=== PATIENT | female | born 1985 | race Caucasian/White ===

== ENCOUNTER → 2020-09-06 | Outpatient (CLI) | payer OTHER ==
[~2020-09-06] MED LIST: FLAGYL500 MG PO; PHENERGAN 12.12.5 M1 PO; PHENERGAN 12.12.5 MG PR; PHENERGAN 25 MG25 M1 PO; PHENERGAN 25 MG25 MG PR; REGLAN10 MG PO
== END ==
LOC: RT 08:04
DX: K31.84 Gastroparesis (principal); R00.0 Tachycardia, unspecified
CPT/HCPCS: 93005

== ENCOUNTER 2020-10-20 00:13 | Emergency (ER) | payer OTHER ==
[~2020-10-20 00:13] MED LIST changes: -PHENERGAN 12.12.5 MG PR
[2020-10-20 02:43] LABS: HEMOGLOBIN 15.4 gm/dl (12.3-15.3); RED BLOOD COUNT 5.17 M/UL (4.00-5.10); WHITE BLOOD COUNT 14.2 K/UL (4.5-11.0)
[2020-10-20 02:56] LABS: BUN/CREATININE RATIO 10 (0-10)
[2020-10-20] MEDS ORDERED: PHENERGAN 12.12.5 MG PR (04:09)
== END 2020-10-20 04:40 | disposition home or self-care (01) ==
LOC: ER1 00:13
PROVIDERS: Family Medicine
DX: R11.2 Nausea with vomiting, unspecified (principal); E87.6 Hypokalemia; E11.9 Type 2 diabetes mellitus without complications; I10 Essential (primary) hypertension; F17.210 Nicotine dependence, cigarettes, uncomplicated
CPT/HCPCS: 80053; 81001; 84703; 85025; 96374; 99284; J0780; J7030

== ENCOUNTER → 2021-02-25 | Outpatient (CLI) | payer OTHER ==
[~2021-02-25] MED LIST changes: +CEPHALEXIN500 MG PO; +LODINE CAP 300300 MG PO; +PHENERGAN 12.12.5 MG PR
== END ==
LOC: CT 09:15
DX: R31.29 Other microscopic hematuria (principal)
CPT/HCPCS: 36415; 82565; 84520; Q9967

== ENCOUNTER 2021-03-23 05:19 | Emergency (ER) | payer OTHER ==
[~2021-03-23 05:19] MED LIST changes: -CEPHALEXIN500 MG PO; -LODINE CAP 300300 MG PO
[2021-03-23] MEDS ORDERED: LODINE CAP 300300 MG PO (06:00)
[2021-03-23] MEDS ORDERED: CEPHALEXIN500 MG PO (06:00)
== END 2021-03-23 06:10 | disposition home or self-care (01) ==
LOC: ER1 05:19
DX: S61.212A Laceration without foreign body of right middle finger without damage to nail, initial encounter (principal); S91.201A Unspecified open wound of right great toe with damage to nail, initial encounter; E11.9 Type 2 diabetes mellitus without complications; F17.210 Nicotine dependence, cigarettes, uncomplicated; I10 Essential (primary) hypertension; Z88.0 Allergy status to penicillin; Z79.4 Long term (current) use of insulin; W45.8XXA Other foreign body or object entering through skin, initial encounter
CPT/HCPCS: 11750; 12001; 99283

== ENCOUNTER → 2021-05-17 | Outpatient (CLI) | payer OTHER ==
[~2021-05-17] MED LIST changes: +CEPHALEXIN500 MG PO; +LODINE CAP 300300 MG PO
== END ==
LOC: RT 11:17
DX: K31.84 Gastroparesis (principal)
CPT/HCPCS: 93005

== ENCOUNTER 2021-07-21 14:51 | Emergency (ER) | payer OTHER ==
[2021-07-21 15:22] LABS: HEMOGLOBIN 14.9 gm/dl (12.3-15.3); RED BLOOD COUNT 5.02 M/UL (4.00-5.10); WHITE BLOOD COUNT 11.2 K/UL (4.5-11.0)
[2021-07-21 15:52] LABS: BUN/CREATININE RATIO 6 (0-10)
== END 2021-07-21 19:28 | disposition home or self-care (01) ==
LOC: ER1 14:51
PROVIDERS: Physician Assistant
DX: R10.11 Right upper quadrant pain (principal); E11.43 Type 2 diabetes mellitus with diabetic autonomic (poly)neuropathy; K31.84 Gastroparesis; F17.290 Nicotine dependence, other tobacco product, uncomplicated; Z79.84 Long term (current) use of oral hypoglycemic drugs
CPT/HCPCS: 80053; 81001; 84703; 85025; 99284; Q9967

== ENCOUNTER 2021-10-16 23:32 | Emergency (ER) | payer OTHER ==
[2021-10-17] MEDS ORDERED: ZANAFLEX 4 MG TA4 MG PO (02:37)
[2021-10-17] MEDS ORDERED: TORADOL 10 MG T10 MG PO (02:37)
== END 2021-10-17 02:53 | disposition home or self-care (01) ==
LOC: ER1 23:32
DX: M47.814 Spondylosis without myelopathy or radiculopathy, thoracic region (principal); M51.27 Other intervertebral disc displacement, lumbosacral region; E11.9 Type 2 diabetes mellitus without complications; I10 Essential (primary) hypertension; F17.200 Nicotine dependence, unspecified, uncomplicated; Z91.013 Allergy to seafood; Z88.5 Allergy status to narcotic agent; X50.9XXA Other and unspecified overexertion or strenuous movements or postures, initial encounter
CPT/HCPCS: 72128; 72131; 96372; 99284; J1885

== ENCOUNTER 2021-12-13 18:59 | Emergency (ER) | payer OTHER ==
[~2021-12-13 18:59] MED LIST changes: +TORADOL 10 MG T10 MG PO; +ZANAFLEX 4 MG TA4 MG PO
[2021-12-13 19:25] LABS: HEMOGLOBIN 15.2 gm/dl (12.3-15.3); RED BLOOD COUNT 5.15 M/UL (4.00-5.10); WHITE BLOOD COUNT 11.6 K/UL (4.5-11.0)
[2021-12-13 19:47] LABS: BUN/CREATININE RATIO 10 (0-10)
[2021-12-13] MEDS ORDERED: COMPAZINE10 MG PO (21:18)
[2021-12-13] MEDS ORDERED: CARAFATE 1 GM TA1 GM PO (22:09)
== END 2021-12-14 02:47 | disposition home or self-care (01) ==
LOC: ER1 18:59
DX: R10.13 Epigastric pain (principal); R11.2 Nausea with vomiting, unspecified; R19.7 Diarrhea, unspecified; K21.9 Gastro-esophageal reflux disease without esophagitis; F17.290 Nicotine dependence, other tobacco product, uncomplicated; Z88.0 Allergy status to penicillin; Z88.5 Allergy status to narcotic agent; Z88.8 Allergy status to other drugs, medicaments and biological substances
CPT/HCPCS: 80053; 81001; 82962; 83690; 84703; 85025; 87086; 96374; 96375; 96376; 99284; C9113; J0780; J1200; J2060; J2405; J2765

== ENCOUNTER 2022-02-26 20:35 | Emergency (ER) | payer OTHER ==
[~2022-02-26 20:35] MED LIST changes: +CARAFATE 1 GM TA1 GM PO; +COMPAZINE10 MG PO
[2022-02-26 21:02] LABS: HEMOGLOBIN 15.4 gm/dl (12.3-15.3); RED BLOOD COUNT 5.08 M/UL (4.00-5.10)
[2022-02-26 21:23] LABS: BUN/CREATININE RATIO 16 (0-10)
[2022-02-26] MEDS ORDERED: ZOFRAN 4 MG TAB4 MG PO (22:00)
[2022-02-26] MEDS ORDERED: BENZONATATE200 MG PO (22:00)
== END 2022-02-26 23:08 | disposition home or self-care (01) ==
LOC: ER1 20:35
PROVIDERS: Preventive Medicine Occupational Medicine
DX: U07.1 COVID-19 (principal)
CPT/HCPCS: 0240U; 71045; 80053; 81001; 85025; 87081; 87880; 93005; 96361; 96374; 99284; J2405